=== PATIENT | male | born 1970 | race Caucasian/White ===

== ENCOUNTER 2022-01-09 22:35 | Emergency (ER) | payer OTHER ==
[2022-01-09 22:46] VITALS: RESP 18; TEMP 98.6
[2022-01-09] MEDS ORDERED: LORazepam 2 MG/ML INJ IV STA (22:54)
[2022-01-09] MEDS ORDERED: SODIUM CHLORIDE 0.9% 500 ML 500 ML IV STA (22:54)
[2022-01-09] MEDS ORDERED: TOPICAL SKIN ADHESIVE 1 EACH AMP TOPICAL ONE (23:10)
--- NOTE | 2022-01-09 23:10 | ED ---
Seizure HPI - General Chief Complaint: Seizure Stated Complaint: Seizure Time Seen by Provider: 01/09/22 22:54 Source: patient, EMS Mode of arrival: EMS Limitations: no limitations - History of Present Illness Initial Comments: This patient is a 51-year-old man with history of previous seizure disorder who presents tonight with complaint that he had a seizure. Patient is at [facility] after stopping drinking. His last drink was approximately one week ago. He has underlying seizure disorder and used to be taking Depakote but stopped taking it. His last seizure was approximately year ago. Patient states she was standing and talking with some of the other clients there when he began feeling a little funny. The next thing he recalls was waking up with EMS people loading into the ambulance. He does have a little bit of localized headache to the left for head/brow area. Staff told him that he had fallen and struck his head. He denies generalized headache. He states that had pain is mild. Patient states that he believes his tetanus shot is up-to-date. MD Complaint: seizure -: hour(s) Description of Episode: loss of consciousness, tonic-clonic movement -: second(s) Witnessed: yes - by bystander Trauma: Yes Seizure History: known seizure disorder Place: other Possible Precipitating Event: alcohol withdrawal Associated Symptoms: denies other symptoms Treatments Prior to Arrival: none - Related Data Allergies Allergy/AdvReac Type Severity Reaction Status Date / Time No Known Allergies Allergy Verified 01/09/22 23:14 Review of Systems ROS Statement: Those systems with pertinent positive or pertinent negative responses have been documented in the HPI. ROS Other: All systems not noted in ROS Statement are negative. Constitutional: Denies: fever, chills, weakness Eyes: Denies: eye pain, vision change ENT: Denies: ear pain, hearing loss, epistaxis Respiratory: Denies: cough, dyspnea Cardiovascular: Denies: chest pain, palpitations Gastrointestinal: Denies: abdominal pain, vomiting, diarrhea Genitourinary: Denies: dysuria Musculoskeletal: Denies: back pain Skin: Denies: rash Neurological: Reports: headache. Denies: weakness, numbness, paresthesias, confusion Hematological/Lymphatic: Denies: easy bleeding General Exam Limitations: no limitations General appearance: alert, in no apparent distress Head exam: Present: normocephalic, other (Left brow laceration) Eye exam: Present: normal appearance, PERRL, EOMI. Absent: scleral icterus, conjunctival injection, nystagmus ENT exam: Present: normal oropharynx Neck exam: Present: normal inspection, full ROM. Absent: tenderness Respiratory exam: Present: normal lung sounds bilaterally. Absent: respiratory distress, wheezes, rales, rhonchi, stridor Extremities exam: Present: normal inspection, normal capillary refill. Absent: pedal edema, calf tenderness Back exam: Present: normal inspection. Absent: CVA tenderness (R), CVA tender ness (L), vertebral tenderness Neurological exam: Present: alert, oriented X3, CN II-XII intact. Absent: motor sensory deficit Skin exam: Present: warm, dry, normal color, abrasion, other (Left brow laceration approximately 3 cm.) Course Vital Signs 01/09/22 01/09/22 01/09/22 22:39 22:50 23:20 Temperature 98.6 F Pulse Rate 79 73 73 Respiratory 18 17 20 Rate Blood Pressure 96/71 107/70 103/76 O2 Sat by Pulse 98 98 99 Oximetry 01/10/22 00:00 Temperature Pulse Rate 85 Respiratory 18 Rate Blood Pressure 106/69 O2 Sat by Pulse 98 Oximetry Procedures - Laceration Laceration #1 Consent Obtained: verbal consent Indication: laceration Site: face Description: linear Depth: simple, single layer Type of Sutures: other (C) Size of Sutures: other (V) Patient Tolerated Procedure: well, no complications Medical Decision Making - Medical Decision Making Patient's 51-year-old man who arrives to have evaluation following seizure. There is history of seizure disorder though no seizure in probably about a year he states. Patient had weaned himself from his medication. He states his seizures aren't you generally caused by stopping drinking. Patient does have a laceration to left forehead/brow. We discussed suture repair and this point patient declines he strongly requests the skin adhesive and I expressed that he thought that sutures would be a little bit superior to this but patient states she is willing to accept that. Patient be discharged back to [place], at this point he is declining to restart anticonvulsant medication. Will have patient follow-up - Lab Data Result diagrams: 01/09/22 23:13 01/09/22 23:13 Lab Results 01/09/22 01/09/22 Range/Units 23:13 23:13 WBC 8.0 (3.8-10.6) k/uL RBC 4.03 L (4.30-5.90) m/uL Hgb 13.1 (13.0-17.5) gm/dL Hct 39.9 (39.0-53.0) % MCV 99.0 (80.0-100.0) fL MCH 32.5 (25.0-35.0) pg MCHC 32.8 (31.0-37.0) g/dL RDW 12.6 (11.5-15.5) % Plt Count 172 (150-450) k/uL MPV 9.7 Neutrophils % 77 % Lymphocytes % 11 % Monocytes % 8 % Eosinophils % 2 % Basophils % 1 % Neutrophils # 6.2 (1.3-7.7) k/uL Lymphocytes # 0.9 L (1.0-4.8) k/uL Monocytes # 0.6 (0-1.0) k/uL Eosinophils # 0.1 (0-0.7) k/uL Basophils # 0.1 (0-0.2) k/uL Sodium 133 L (137-145) mmol/L Potassium 4.4 (3.5-5.1) mmol/L Chloride 99 (98-107) mmol/L Carbon Dioxide 26 (22-30) mmol/L Anion Gap 8 mmol/L BUN 20 (9-20) mg/dL Creatinine 0.77 (0.66-1.25) mg/dL Est GFR (CKD-EPI)AfAm >90 (>60 ml/min/1.73 sqM) Est GFR (CKD-EPI)NonAf >90 (>60 ml/min/1.73 sqM) Glucose 136 H (74-99) mg/dL Calcium 9.9 (8.4-10.2) mg/dL Magnesium 2.0 (1.6-2.3) mg/dL Total Bilirubin 0.4 (0.2-1.3) mg/dL AST 32 (17-59) U/L ALT 31 (4-49) U/L Alkaline Phosphatase 44 (38-126) U/L Total Protein 6.9 (6.3-8.2) g/dL Albumin 4.7 (3.5-5.0) g/dL Serum Alcohol <10 mg/dL - EKG Data -: EKG Interpreted by Me EKG shows normal: sinus rhythm (Rate 72 bpm), axis (Normal), intervals (Normal), QRS complexes (Normal), ST-T waves (Normal) Rate: normal Interpretation: normal EKG Disposition Clinical Impression: Generalized seizure Disposition: HOME SELF-CARE Condition: Good Instructions (If sedation given, give patient instructions): Seizure/Epilepsy Discharge Instructions & Follow-Up Is patient prescribed a controlled substance at d/c from ED?: No Referrals: None,Stated [Primary Care Provider] - 1-2 days
[2022-01-09 23:24] LABS: Basophils # (A) 0.1 k/uL (0-0.2); Basophils % (A) 1 %; Eosinophils # (A) 0.1 k/uL (0-0.7); Eosinophils % (A) 2 %; HCT 39.9 % (39.0-53.0); HGB 13.1 gm/dL (13.0-17.5); Lymphocytes # (A) 0.9 k/uL (1.0-4.8); Lymphocytes % (A) 11 %; MCH 32.5 pg (25.0-35.0); MCHC 32.8 g/dL (31.0-37.0); Mean Platelet Volume 9.7; Monocytes # (A) 0.6 k/uL (0-1.0); Monocytes % (A) 8 %; Neutrophils # (A) 6.2 k/uL (1.3-7.7); Neutrophils % (A) 77 %; Platelet Count 172 k/uL (150-450); RBC 4.03 m/uL (4.30-5.90); RDW 12.6 % (11.5-15.5)
[2022-01-09 23:39] LABS: ALT 31 U/L (4-49); AST 32 U/L (17-59); African American GFR (CKD) >90 (>60 ml/min/1.73 sqM); Albumin 4.7 g/dL (3.5-5.0); Alcohol <10 mg/dL; Alkaline Phosphatase 44 U/L (38-126); Anion Gap 8 mmol/L; Blood Urea Nitrogen 20 mg/dL (9-20); Calcium 9.9 mg/dL (8.4-10.2); Carbon Dioxide 26 mmol/L (22-30); Chloride 99 mmol/L (98-107); Glucose 136 mg/dL (74-99); Non-African American GFR(CKD) >90 (>60 ml/min/1.73 sqM); Potassium 4.4 mmol/L (3.5-5.1); Sodium 133 mmol/L (137-145); Total Bilirubin 0.4 mg/dL (0.2-1.3); Total Protein 6.9 g/dL (6.3-8.2)
[2022-01-10 00:13] VITALS: BP 106/69; PULSE 85
== END 2022-01-10 03:00 | disposition home or self-care (01) ==
LOC: EC 22:35
DX: R56.9 Unspecified convulsions (principal)
CPT/HCPCS: 36415; 93005; 80053; 83735; 85025; 99285; 96374; 96361; 12013; G0480; J2060; 80320

== ENCOUNTER 2022-01-15 11:44 | Emergency (ER) | payer OTHER ==
[2022-01-15 11:59] VITALS: BP 119/84; PULSE 64; RESP 17; TEMP 98
--- NOTE | 2022-01-15 12:47 | CT ---
EXAMINATION TYPE: CT brain wo con DATE OF EXAM: 01/15/2022 HISTORY: Headache, recent trauma to LT synagogue. CT DLP: 1173.4 mGycm. Automated Exposure Control for Dose Reduction was Utilized. TECHNIQUE: CT scan of the head is performed without contrast. COMPARISON: None. FINDINGS: There is no acute intracranial hemorrhage or midline shift identified. Ventricles and sul ci within normal limits of size for patient's age. Charles-white matter saturation fairly well-maintaine d. The calvarium is intact. Patchy cerumen in the deep external auditory canals bilaterally. Moderate to severe mucosal thickening right maxillary sinus with some dependent fluid. Globes are intact bi laterally. IMPRESSION: Acute on chronic right maxillary sinus disease. No acute intracranial hemorrhage or midl ine shift.
--- NOTE | 2022-01-15 12:56 | ED ---
General Adult HPI - General Chief complaint: Neuro Symptoms/Deficit Stated complaint: Headache Time Seen by Provider: 01/15/22 11:55 Source: patient, EMS, RN notes reviewed Mode of arrival: EMS Limitations: no limitations - History of Present Illness Initial comments: This a 51-year-old male presents emergency Department with chief complaint of headaches. Patient states his been having headaches ever since he had a seizure last week. Patient was evaluated in emergency from for this. Patient has a history of seizures especially drinking alcohol detox. Patient is currently at [facility] patient states that he has been taken Tylenol Motrin which she's been helping the headaches but they've been more frequent is concerned he did have noted head injury, abrasion above his left eye. No visual disturbance denies any nausea vomiting denies any difficulty eating no focal weakness no blurred vision no neck pain. Patient states she just felt off in which he sent her here for further evaluation - Related Data Home Medications Medication Instructions Recorded Confirmed Acetaminophen [Tylenol Arthritis] 650 mg PO Q4H PRN 01/15/22 01/15/22 Calc/Mag/Zinc/Vitamin D 1 tab PO TID PRN 01/15/22 01/15/22 Chlorpheniramine Maleate 4 mg PO Q4H PRN 01/15/22 01/15/22 [Chlor-Trimeton] Hyoscyamine Sulfate [Levsin] 0.125 mg PO QID PRN 01/15/22 01/15/22 Ibuprofen [Motrin Ib] 600 mg PO Q6H PRN 01/15/22 01/15/22 Loperamide HCl [Imodium A-D] 4 mg PO QID PRN 01/15/22 01/15/22 Mirtazapine [Remeron] 15 - 30 mg PO HS 01/15/22 01/15/22 Multivitamins, Thera [Multivitamin 1 tab PO DAILY 01/15/22 01/15/22 (formulary)] Thiamine [Vitamin B-1] 100 mg PO DAILY 01/15/22 01/15/22 Tigan 200mg/2ml 200 mg IM Q6H PRN 01/15/22 01/15/22 busPIRone HCl [Buspar] 10 mg PO TID 01/15/22 01/15/22 cloNIDine HCL [Catapres] 0.1 - 0.3 mg PO Q4H PRN MDD OVER 01/15/22 01/15/22 160/100 ondansetron HCL [Zofran Oral Soln] 4 mg PO Q6H PRN 01/15/22 01/15/22 ondansetron HCL [Zofran] 8 mg PO Q6H PRN 01/15/22 01/15/22 Allergies Allergy/AdvReac Type Severity Reaction Status Date / Time No Known Allergies Allergy Verified 01/15/22 12:09 Review of Systems ROS Statement: Those systems with pertinent positive or pertinent negative responses have been documented in the HPI. ROS Other: All systems not noted in ROS Statement are negative. Past Medical History Additional Past Medical History / Comment(s): Seizures r/t alcohol withdrawal Past Surgical History: Adenoidectomy, Tonsillectomy Past Psychological History: Anxiety, Depression Smoking Status: Current every day smoker Past Alcohol Use History: Abuse Past Drug Use History: Marijuana General Exam Limitations: no limitations General appearance: alert, in no apparent distress Head exam: Present: atraumatic, normocephalic, normal inspection Eye exam: Present: normal appearance, PERRL, EOMI, other (Healing abrasion over the left periorbital region). Absent: scleral icterus, conjunctival injection, periorbital swelling ENT exam: Present: normal exam, normal oropharynx, mucous membranes moist Neck exam: Present: normal inspection, full ROM. Absent: tenderness, meningismus, lymphadenopathy Respiratory exam: Present: normal lung sounds bilaterally. Absent: respiratory distress, wheezes, rales, rhonchi, stridor Cardiovascular Exam: Present: regular rate, normal rhythm, normal heart sounds. Absent: systolic murmur, diastolic murmur, rubs, gallop, clicks Neurological exam: Present: alert, oriented X3, reflexes normal, other (Finger to nose intact bilaterally without overshooting). Absent: motor sensory deficit Skin exam: Present: warm, dry, intact, normal color. Absent: rash Course Vital Signs 01/15/22 11:49 Temperature 98 F Pulse Rate 64 Respiratory 17 Rate Blood Pressure 119/84 O2 Sat by Pulse 100 Oximetry Medical Decision Making - Medical Decision Making CT is unremarkable. Patient had labs upon evaluation of his seizure. Patient has normal neuro exam GCS of 15 and NIH 0. Patient may have underlying additional symptoms, headaches from his head injury patient discharged stable condition return parameters were discussed. Disposition Clinical Impression: Concussion, Frequent headaches Disposition: HOME SELF-CARE Condition: Stable Instructions (If sedation given, give patient instructions): Concussion (ED) Additional Instructions: Please return to the Emergency Department if symptoms worsen or any other concerns. Is patient prescribed a controlled substance at d/c from ED?: No Referrals: None,Stated [Primary Care Provider] - 1-2 days Time of Disposition: 12:56
== END 2022-01-15 13:31 | disposition home or self-care (01) ==
LOC: EC 11:44
DX: F07.81 Postconcussional syndrome (principal); R51.9 Headache, unspecified; F41.9 Anxiety disorder, unspecified; F32.A Depression, unspecified; F17.210 Nicotine dependence, cigarettes, uncomplicated; F12.90 Cannabis use, unspecified, uncomplicated; Z79.899 Other long term (current) drug therapy
CPT/HCPCS: 70450; 99284